=== PATIENT | female | born 1985 | race Caucasian/White ===

== ENCOUNTER 2017-11-09 00:35 | Emergency (ER) | payer MEDICAID ==
[~2017-11-09] VITALS: Ht 149.9 cm; Wt 59.0 kg
[2017-11-09 01:19] VITALS: BP 115/58
== END 2017-11-09 02:16 | disposition home or self-care (01) ==
LOC: ED 00:35
DX: S61.211A Laceration without foreign body of left index finger without damage to nail, initial encounter (principal); Z88.8 Allergy status to other drugs, medicaments and biological substances; Z88.1 Allergy status to other antibiotic agents; W25.XXXA Contact with sharp glass, initial encounter; Y93.89 Activity, other specified; Y92.89 Other specified places as the place of occurrence of the external cause; Y99.8 Other external cause status
CPT/HCPCS: J2001